=== PATIENT | male | born 1960 | race Caucasian/White ===

== ENCOUNTER 2017-02-15 05:27 | Emergency (ER) | payer SELFPAY ==
[~2017-02-15] VITALS: Ht 172.7 cm; Wt 65.0 kg
[2017-02-15 05:28] VITALS: BP 189/86; PULSE 62; RESP 16; TEMP 98.7; O2SAT 97
[2017-02-15] MEDS ORDERED: SODIUM CHLOR 0.9% 1000 ML INJ 1,000 ML IV SCH (05:41)
[2017-02-15] MEDS ORDERED: MORPHINE SULFATE 4 MG/ML INJ IV PUSH ONE (05:45)
[2017-02-15] MEDS ORDERED: ONDANSETRON HCL 4 MG/2 ML VIAL IVP ONE (05:45)
[2017-02-15] MEDS ORDERED: SODIUM CHLORIDE 0.9% FLUSH 10 ML FLUSH IV FLUSH PRN (05:45)
[2017-02-15 05:56] VITALS: BP 142/97; PULSE 71; RESP 18; O2SAT 98
[2017-02-15 06:09] LABS: AUTOMATED NEUTROPHIL # 7.9 TH/MM3 (1.8-7.7); BASOPHIL # 0.1 TH/MM3 (0-0.2); BASOPHIL % 1.1 % (0.0-2.0); EOSINOPHIL # 0.2 TH/MM3 (0-0.4); EOSINOPHIL % 1.9 % (0.0-4.0); HEMATOCRIT 38.5 % (39.0-51.0); HEMO FLAGS DIFF FINAL; LYMPH % 17.8 % (9.0-44.0); MEAN CELL VOLUME 97.2 FL (80.0-100.0); MEAN CORPUSCULAR HEMOGLOBIN 32.4 PG (27.0-34.0); MEAN CORPUSCULAR HGB CONC 33.4 % (32.0-36.0); MONO % 9.1 % (0.0-8.0); NEUT % 70.1 % (16.0-70.0); PLATELET COUNT 414 TH/MM3 (150-450); RED BLOOD COUNT 3.96 MIL/MM3 (4.50-5.90); RED CELL DISTRIBUTION WIDTH 13.7 % (11.6-17.2); WHITE BLOOD COUNT 11.3 TH/MM3 (4.0-11.0)
--- NOTE | 2017-02-15 06:16 | PD ---
HPI Chief Complaint: GI Complaint Time Seen by Provider: 05:33 Travel History International Travel<30 days: No Contact w/Intl Traveler<30days: No Traveled to known affect area: No History of Present Illness HPI 56-year-old male here with complaint of abdominal pain, nausea and vomiting. Patient states that he had an approximate 1.5 weeks of epigastric abdominal discomfort, nausea and vomiting. Hospitalized for several days at [facility] where he had an endoscopy. 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 States they attempted to place a stent but were unable to do so. He was discharged 4 days ago with an antacid. His symptoms have persisted. Epigastric pain is mild, constant, worse after oral intake. Nausea and vomiting are fairly frequent. Mostly phlegm in the emesis. No hematemesis or hematochezia. No chills or fevers. PFSH Past Medical History Pancreatitis: Yes Tetanus Vaccination: Unknown Influenza Vaccination: No Past Surgical History Cholecystectomy: Yes Social History Alcohol Use: No (quit ETOH x2 months) Tobacco Use: Yes Substance Use: No Allergies-Medications (Allergen,Severity, Reaction): Coded Allergies: No Known Allergies (Unverified , 02/15/17) Reported Meds & Prescriptions Reported Meds & Active Scripts Active No Active Prescriptions or Reported Medications Review of Systems Except as stated in HPI: all other systems reviewed are Neg Physical Exam Narrative GENERAL: Thin Well-appearing male in mild distress SKIN: Focused skin assessment warm/dry. HEAD: Normocephalic. EYES: No scleral icterus. No injection or drainage. ENT: Mucous membranes pink and moist. NECK: Supple CARDIOVASCULAR: Regular rate and rhythm. No murmur appreciated. RESPIRATORY: No accessory muscle use. Clear to auscultation. Breath sounds equal bilaterally. GASTROINTESTINAL: Abdomen soft, epigastric tenderness to palpation without rebound or guarding MUSCULOSKELETAL: Normal gait NEUROLOGICAL: Awake and alert. Normal speech. PSYCHIATRIC: Appropriate mood and affect; insight and judgment normal. Data Data Last Documented VS Vital Signs Date Time Temp Pulse Resp B/P Pulse Ox O2 Delivery O2 Flow Rate FiO2 02/15/17 05:56 71 18 142/97 98 Room Air 02/15/17 05:28 98.7 Orders Complete Blood Count With Diff (02/15/17 05:41) Comprehensive Metabolic Panel (02/15/17 05:41) Lipase (02/15/17 05:41) Urinalysis - C+S If Indicated (02/15/17 05:41) Iv Access Insert/Monitor (02/15/17 05:41) Ecg Monitoring (02/15/17 05:41) Oximetry (02/15/17 05:41) Morphine Inj (Morphine Inj) (02/15/17 05:45) Ondansetron Inj (Zofran Inj) (02/15/17 05:45) Sodium Chlor 0.9% 1000 Ml Inj (Ns 1000 M (02/15/17 05:41) Sodium Chloride 0.9% Flush (Ns Flush) (02/15/17 05:45) Labs Laboratory Tests Test 02/15/17 05:55 White Blood Count 11.3 TH/MM3 Red Blood Count 3.96 MIL/MM3 Hemoglobin 12.8 GM/DL Hematocrit 38.5 % Mean Corpuscular Volume 97.2 FL Mean Corpuscular Hemoglobin 32.4 PG Mean Corpuscular Hemoglobin 33.4 % Concent Red Cell Distribution Width 13.7 % Platelet Count 414 TH/MM3 Mean Platelet Volume 6.7 FL Neutrophils (%) (Auto) 70.1 % Lymphocytes (%) (Auto) 17.8 % Monocytes (%) (Auto) 9.1 % Eosinophils (%) (Auto) 1.9 % Basophils (%) (Auto) 1.1 % Neutrophils # (Auto) 7.9 TH/MM3 Lymphocytes # (Auto) 2.0 TH/MM3 Monocytes # (Auto) 1.0 TH/MM3 Eosinophils # (Auto) 0.2 TH/MM3 Basophils # (Auto) 0.1 TH/MM3 CBC Comment DIFF FINAL Differential Comment MDM Medical Decision Making Medical Screen Exam Complete: Yes Emergency Medical Condition: Yes Medical Record Reviewed: Yes Differential Diagnosis 56-year-old male with epigastric abdominal pain nausea and vomiting after recent admission at outside hospital for what he describes as pancreatitis with pancreatic stricture unable to place a stent. Differential includes pancreatitis, gastritis, peptic ulcer disease, hepatobiliary pathology, bowel obstruction, post procedural complications including perforation or sepsis. Narrative Course Patient placed on monitor, IV established and blood obtained. Given 1 L normal saline bolus, 4 mg morphine 4 mg Zofran. CBC, CMP, lipase and urinalysis obtained, pending dictation. [facility] Patient signed out to oncoming provider waiting results of the above. Scripts No Active Prescriptions or Reported Meds Desirae Nguyễn MD Feb 15, 2017 06:16
[2017-02-15 06:48] LABS: ALT (GPT) 27 U/L (12-78); ANION GAP 8 MEQ/L (5-15); AST (GOT) 11 U/L (15-37); BICARBONATE 26.7 MEQ/L (21.0-32.0); BLOOD UREA NITROGEN 18 MG/DL (7-18); CHLORIDE 105 MEQ/L (98-107); GLOMERULAR FILTRATION RATE 96 ML/MIN (>89); POTASSIUM 4.2 MEQ/L (3.5-5.1); SODIUM (NA) 140 MEQ/L (136-145)
[2017-02-15 06:51] LABS: ALKALINE PHOSPHATASE 58 U/L (45-117); TOTAL BILIRUBIN ADULT 0.5 MG/DL (0.2-1.0)
[2017-02-15 07:00] VITALS: BP 191/87; PULSE 55; RESP 17; O2SAT 98
[2017-02-15 07:20] LABS: BACTERIA, URINE OCC /hpf; BLOOD, URINE NEG (NEG); CALCIUM OXALATE CRYSTALS,URINE OCC /hpf; COMMENT (UR) CULT NOT INDICATED; CULTURE IF INDICATED CULT NOT INDICATED; GLUCOSE,URINE NEG (NEG); KETONE, URINE NEG (NEG); MUCUS URINE FEW /lpf (OCC); NITRITE,URINE NEG (NEG); PH, URINE 6.5 (5.0-8.5); URINE COLOR YELLOW (YELLW/STRAW)
[2017-02-15 07:41] VITALS: BP 171/92
[2017-02-15] MEDS ORDERED: CARA1TAB6 PO (07:43)
[2017-02-15] MEDS ORDERED: PANT20 PO (07:43)
[2017-02-15] MEDS ORDERED: DICY10 PO (07:43)
--- NOTE | 2017-02-15 07:43 | PD ---
Physical Exam Narrative Patient was seen by ED physician and signed out to me. Data Data Last Documented VS Vital Signs Date Time Temp Pulse Resp B/P Pulse Ox O2 Delivery O2 Flow Rate FiO2 02/15/17 07:00 55 17 191/87 98 Room Air 02/15/17 05:28 98.7 Orders Complete Blood Count With Diff (02/15/17 05:41) Comprehensive Metabolic Panel (02/15/17 05:41) Lipase (02/15/17 05:41) Urinalysis - C+S If Indicated (02/15/17 05:41) Iv Access Insert/Monitor (02/15/17 05:41) Ecg Monitoring (02/15/17 05:41) Oximetry (02/15/17 05:41) Morphine Inj (Morphine Inj) (02/15/17 05:45) Ondansetron Inj (Zofran Inj) (02/15/17 05:45) Sodium Chlor 0.9% 1000 Ml Inj (Ns 1000 M (02/15/17 05:41) Sodium Chloride 0.9% Flush (Ns Flush) (02/15/17 05:45) Labs Laboratory Tests Test 02/15/17 02/15/17 05:55 06:05 White Blood Count 11.3 TH/MM3 Red Blood Count 3.96 MIL/MM3 Hemoglobin 12.8 GM/DL Hematocrit 38.5 % Mean Corpuscular Volume 97.2 FL Mean Corpuscular Hemoglobin 32.4 PG Mean Corpuscular Hemoglobin 33.4 % Concent Red Cell Distribution Width 13.7 % Platelet Count 414 TH/MM3 Mean Platelet Volume 6.7 FL Neutrophils (%) (Auto) 70.1 % Lymphocytes (%) (Auto) 17.8 % Monocytes (%) (Auto) 9.1 % Eosinophils (%) (Auto) 1.9 % Basophils (%) (Auto) 1.1 % Neutrophils # (Auto) 7.9 TH/MM3 Lymphocytes # (Auto) 2.0 TH/MM3 Monocytes # (Auto) 1.0 TH/MM3 Eosinophils # (Auto) 0.2 TH/MM3 Basophils # (Auto) 0.1 TH/MM3 CBC Comment DIFF FINAL Differential Comment Sodium Level 140 MEQ/L Potassium Level 4.2 MEQ/L Chloride Level 105 MEQ/L Carbon Dioxide Level 26.7 MEQ/L Anion Gap 8 MEQ/L Blood Urea Nitrogen 18 MG/DL Creatinine 0.83 MG/DL Estimat Glomerular Filtration 96 ML/MIN Rate Random Glucose 113 MG/DL Calcium Level 8.6 MG/DL Total Bilirubin 0.5 MG/DL Aspartate Amino Transf 11 U/L (AST/SGOT) Alanine Aminotransferase 27 U/L (ALT/SGPT) Alkaline Phosphatase 58 U/L Total Protein 6.9 GM/DL Albumin 3.2 GM/DL Lipase 220 U/L Urine Color YELLOW Urine Turbidity CLEAR Urine pH 6.5 Urine Specific [place] 1.023 Urine Protein TRACE mg/dL Urine Glucose (UA) NEG mg/dL Urine Ketones NEG mg/dL Urine Occult Blood NEG Urine Nitrite NEG Urine Bilirubin NEG Urine Urobilinogen LESS THAN 2.0 MG/DL Urine Leukocyte Esterase NEG Urine RBC 2 /hpf Urine WBC 1 /hpf Urine Calcium Oxalate Crystals OCC /hpf Urine Amorphous Sediment FEW Urine Bacteria OCC /hpf Urine Mucus FEW /lpf Microscopic Urinalysis Comment CULT NOT INDICATED MDM Supervised Visit with [facility]: No Interpretation(s) 7:35 AM. CBC WBC 11.3. Hemoglobin 12.8 hematocrit 30.5. Normal differential. CMP within normal limit. UA is negative. Narrative Course 56-year-old male with recurrent abdominal pain. Patient has epigastric abdominal pain which has been persistent for several years. Patient status post cholecystectomy. Patient was seen by coffee shop manager about 4 months ago and had endoscopy done which was negative. Patient was admitted to [facility] in [facility] and had endoscopy on February 08, 2017. Endoscopy shows normal pancreatic angiogram. angiogram. Patchy duodenitis. Patient had pancreatitis status post ERCP. Lipase improved subsequently. Patient was discharged home with diagnoses abdominal pain, nausea vomiting, gastritis, enterocolitis. Patient has history of EtOH abuse in the past. Examination: Patient has moderate tenderness of the patient epigastric area. No rebound tenderness. No mass. I spoke with GI specialist on-call today Dr. Duff . Advised outpatient follow with GI specialist. Patient was given morphine and Zofran earlier today. Protonix 40 mg IV. 10 cc by mouth. Maalox 30 cc by mouth. Diagnosis Primary Impression: Abdominal pain Qualified Code: R10.13 - Epigastric pain Additional Impression: Gastritis Qualified Code: K29.70 - Gastritis without bleeding, unspecified chronicity, unspecified gastritis type Patient Instructions: General Instructions Additional Instruction: Take medications as directed. Follow up with GI specialist. Return if worse. Med/Other Pt SpecificInfo: Prescription(s) given Scripts Dicyclomine (Bentyl)10 Mg Cap10 Mg PO TID PRN (Bowel Management) #30 CAP Ref 0 Prov:Lars Watkins MD 02/15/17 Sucralfate (Carafate)1 Gm Tab1 Gm PO QID #120 TAB Ref 0 On empty stomach Prov:Lars Watkins MD 02/15/17 Pantoprazole (Protonix)20 Mg Tab20 Mg PO DAILY #30 TAB Prov:Lars Watkins MD 02/15/17 Disposition: 01 DISCHARGE HOME Condition: Stable Lars Watkins MD Feb 15, 2017 07:43
[2017-02-15] MEDS ORDERED: ALUMINUM/MAGNESIUM/SIMETH 30 ML CUP PO ONE (07:45)
[2017-02-15] MEDS ORDERED: ATROPINE/SCOPOLAM/HYOSCYAM/PB ELIXIR 10 ML CUP PO ONE (07:45)
[2017-02-15] MEDS ORDERED: PANTOPRAZOLE SODIUM 40 MG VIAL IV PUSH ONE (07:45)
[2017-02-15 09:22] VITALS: BP 158/82
== END 2017-02-15 09:24 | disposition home or self-care (01) ==
LOC: NEPE 05:27
DX: K29.70 Gastritis, unspecified, without bleeding (principal); R10.13 Epigastric pain
CPT/HCPCS: 80053; 81001; 83690; 85025; 96374; 96375; 99284; C9113; J2270; J2405; J7030